=== PATIENT | male | born 1965 | race Two or more races ===

== ENCOUNTER 2019-01-14 13:51 | Emergency (ER) | payer OTHER ==
[~2019-01-14] VITALS: Ht 170.2 cm; Wt 68.0 kg
--- NOTE | 2019-01-14 14:00 | NUR ---
PATIENT WAS MSE BY DR BLISS IN ROOM 04B. PATIENT A & O X3.
[2019-01-14] MEDS ORDERED: SULF1TAB48 PO (14:07)
--- NOTE | 2019-01-14 14:15 | NUR ---
Patient discharged to home in stable conditon. Written and verbal after care instructions given. Patient verbalizes understanding of instructions.
[2019-01-14 14:19] VITALS: BP 117/76
== END 2019-01-14 14:29 | disposition home or self-care (01) ==
LOC: ER 13:54
DX: L03.213 Periorbital cellulitis (principal); Z79.899 Other long term (current) drug therapy
CPT/HCPCS: A4663